=== PATIENT | male | born 1960 | race Caucasian/White ===

== ENCOUNTER 2019-04-06 13:02 | Emergency (ER) | payer SELFPAY ==
[~2019-04-06] VITALS: Ht 182.9 cm; Wt 94.0 kg
[2019-04-06] MEDS ORDERED: VISCOUS LIDOCAINE 2% 15 ML UDC PO STA (15:36)
[2019-04-06] MEDS ORDERED: MAGNESIUM/ALUMINUM HYDROXIDE/SIMETHICONE 30ML UDC PO STA (15:36)
[2019-04-06] MEDS ORDERED: DICYCLOMINE 10 MG/5 ML ORAL SYR PO STA (15:36)
[2019-04-06] MEDS ORDERED: SODIUM CHLORIDE 0.9% 1,000 ML IV ONE (15:36)
[2019-04-06] MEDS ORDERED: ONDANSETRON HCL 4MG/2ML INJ IV STA (15:36)
[2019-04-06 16:10] LABS: BASOPHILS % 0.2 % (0.0-2.0); EOSINOPHILS % 0.4 % (0.0-5.0); HEMATOCRIT. 46.6 % (42.0-52.0); HEMOGLOBIN. 16.1 g/dL (14.0-18.0); MEAN CORPUSCULAR HEMOGLOBIN 30.6 pg (28.0-32.0); MEAN CORPUSCULAR VOLUME 88.7 fL (80.0-94.0); MEAN PLATELET VOLUME 7.7 fl (7.4-10.4); MONOCYTES % 2.2 % (2.0-8.0); NEUTROPHILS % 89.2 % (40.0-76.0); PLATELET 228 x1000/uL (130-400); RED BLOOD CELL COUNT 5.25 mill/uL (4.7-6.1); RED CELL DISTRIBUTION WIDTH 13.4 % (11.6-14.6)
[2019-04-06 16:12] LABS: CHLORIDE 101 mEq/L (98-107)
[2019-04-06 16:16] LABS: ETHANOL BLOOD < 10 mg/dL
[2019-04-06] MEDS ORDERED: LORAZEPAM 0.5MG TABLET PO ONE (17:45)
[2019-04-06 18:33] LABS: CLARITY URINE CLEAR (CLEAR); COLOR URINE YELLOW (YELLOW); KETONES URINE NEGATIVE (NEGATIVE); LEUKOCYTE ESTERASE URINE NEGATIVE (NEGATIVE); NITRITE URINE NEGATIVE (NEGATIVE); OCCULT BLOOD URINE TRACE (NEGATIVE); PH URINE 7.5 (4.5-8.0); PROTEIN URINE NEGATIVE (NEGATIVE); SPECIFIC GRAVITY URINE 1.008 (1.005-1.030); UROBILINOGEN URINE 0.2 E.U./dL (0.2-1.0)
[2019-04-06 18:57] LABS: *AMPHETAMINES SCREEN URINE NEGATIVE (NEGATIVE); *BARBITURATES SCREEN URINE NEGATIVE (NEGATIVE)
[2019-04-06 18:58] LABS: *BENZODIAZEPINES SCREEN URINE NEGATIVE (NEGATIVE); *COCAINE SCREEN URINE NEGATIVE (NEGATIVE); METHADONE URINE SCREEN NEGATIVE (NEGATIVE); OPIATES URINE SCREEN NEGATIVE (NEGATIVE); PHENCYCLIDINE URINE SCREEN NEGATIVE (NEGATIVE)
[2019-04-06 18:59] LABS: CANNABINOID URINE SCREEN NEGATIVE (NEGATIVE)
[2019-04-06 19:44] VITALS: BP 130/82
== END 2019-04-06 20:04 | disposition home or self-care (01) ==
LOC: ER 14:53
DX: R07.89 Other chest pain (principal); I16.0 Hypertensive urgency; I10 Essential (primary) hypertension
CPT/HCPCS: 36415; 71045; 80053; 80305; 80320; 81003; 83690; 84484; 85025; 93005; 96361; 96374; 99284; J2405; J7030; G0480